=== PATIENT | female | born 1990 | race Two or more races ===

== ENCOUNTER 2022-12-03 00:28 | Emergency (ER) | payer SELFPAY ==
[~2022-12-03] VITALS: Ht 160 cm; Wt 54.5 kg
[2022-12-03] MEDS ORDERED: METOCLOPRAMIDE HCL 5MG/ml INJ 2ml VIAL IM ONE (04:00)
[2022-12-03] MEDS ORDERED: KETOROLAC TROMETH 30 MG/ML 1ML VIAL IM ONE (04:00)
[2022-12-03] MEDS ORDERED: diphenhdrAMINE HCL 50 MG/1 ML VL IM ONE (04:00)
[2022-12-03 05:04] VITALS: BP 111/74; PULSE 85; RESP 16; TEMP 98.7; O2SAT 100
== END 2022-12-03 06:38 | disposition home or self-care (01) ==
LOC: ER 00:28
DX: G43.909 Migraine, unspecified, not intractable, without status migrainosus (principal)
CPT/HCPCS: 70450; 96372; 99285; J1200; J1885; J2765